=== PATIENT | female | born 1975 | race Caucasian/White ===

== ENCOUNTER → 2017-02-14 09:14 | Day surgery (SDC) | payer OTHER ==
[~2017-02-14 09:14] MED LIST: Buffered Lidocaine 1% SYRIN* 3 ML/SYR SYRINGE INTRADERM ONE; DOXYcycline CAP(*) 100 MG PO ONE; DOXYcycline IV* 100 MG in NS 0.9% 250 ML* 250 ML IVPB ONE; Dexamethasone IV* 4 MG/ML 1 ML (4 MG) ONE; Famotidine IV* 10 MG/ML 2 ML (20 mg) IV ONE; Famotidine IV* 10 MG/ML 2 ML (20 mg) ONE; KETAMINE HCL* 50 MG/ML 10 ML VIAL ONE; Ketorolac INJ* 30 MG/ML 1 ML VIAL ONE; Lidocaine 1% INJ* 10 MG/ML 30 ML SDV ONE; Lidocaine 2% PF* 5 ML VIAL ONE; Metoclopramide TAB* 10 MG ONE; Metoclopramide TAB* 10 MG PO ONE; Midazolam* 1 MG/ML 2 ML VIAL (2 MG) ONE; Midazolam* 1 MG/ML 5 ML VIAL (5 MG) ONE; Misoprostol TAB* 200 MCG ONE; Ondansetron INJ* 2 MG/ML VIAL IV PRN; Ondansetron INJ* 2 MG/ML VIAL ONE; Propofol* 10 MG/ML 20 ML BTL IV PUSH ONE; fentaNYL* 50 MCG/ML 2 ML VIAL (100 MCG VIAL) IV PRN; fentaNYL* 50 MCG/ML 2 ML VIAL (100 MCG VIAL) ONE; oxyCODONE/Acetamin 5/325 MG* TAB PO PRN
[2017-02-14 10:44] LABS: Hematocrit 39 % (35-47); Hemoglobin 13.4 g/dl (12.0-16.0); Mean Corpuscular HGB Conc 34 g/dl (31-36); Mean Corpuscular Hemoglobin 31 pg (27-31); Mean Corpuscular Volume 92 fL (80-97); Mean Platelet Volume 9 um3 (7.4-10.4); Red Blood Count 4.28 10^6/ul (4.0-5.4); Red Cell Distribution Width 13 % (10.5-15); White Blood Count 6.2 10^3/ul (3.5-10.8)
[2017-02-14 12:13] VITALS: BP 110/73
--- NOTE | 2017-02-15 03:34 | OP ---
OPERATIVE REPORT: DATE OF OPERATION: 02/14/17 DATE OF : 75 SURGEON: Marlen Oro MD CLIENT RENEWAL SPECIALIST: None. ANESTHESIOLOGIST: Dr. Charles. ANESTHESIA: Sedation with a paracervical block. PRE-OP DIAGNOSIS: Intrauterine at 8 weeks and 3/7 days missed . POST-OP DIAGNOSIS: Intrauterine at 8 weeks and 3/7 days missed . OPERATIVE PROCEDURE: Dilatation, evacuation, and curettage. ESTIMATED BLOOD LOSS: 100 cc. URINE OUTPUT: 100 cc of clear yellow urine. FLUIDS: 1000 cc of crystalloid. FINDINGS: Revealed intrauterine contents consistent with products of conception. COMPLICATIONS: None apparent. DISPOSITION: Stable to recovery room. DESCRIPTION OF PROCEDURE: The patient was placed into a supine position. Legs were placed in candy -cane stirrups. The perineum and vagina were prepped and draped in a sterile standard fashion. Aft er prepping and draping, the patient was identified using universal protocol for correct position, p atient, and procedure. Self cath was done using a self cath catheter, drainage for 100 cc of clear y ellow urine. A sterile speculum was inserted. The cervix was visualized and anterior lip paracervi josefina block was done, grasped on the anterior lip with a single-tooth tenaculum, total of 10 cc 1% lid ocaine was used for the paracervical blockade and then dilatation was carried out to #9 Hegar dilato r using an 8 mm curved suction curette. Suction evacuation was then performed in a standard fashion and a sharp curettage was performed confirming removal of intrauterine contents with cry of uterus in 4 quadrants. Single-tooth tenaculum was removed. Sterile speculum was removed. Misoprostol 800 mcg was inserted to keep uterine tone. All sponge, needle, instrument, and blade counts were corre ct throughout the case. The patient tolerated the procedure well and went to recovery room in stabl e condition. [id number]/[facility] #: [id number]
== END | disposition home or self-care (01) ==
LOC: OR 09:14
PROVIDERS: ATTEND Obstetrics & Gynecology
DX: O02.1 Missed abortion (principal); E06.3 Autoimmune thyroiditis
CPT/HCPCS: 36415; 85025; 86850; 86900; 86901; 88233; 88291; 88305; A9270-GY; J1100; J1885; J2001; J2250; J2405; J2704; J3010

== ENCOUNTER 2018-04-06 18:54 | Inpatient (IN) | payer OTHER ==
--- NOTE | 2018-04-06 23:09 | HP ---
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 Pertinent Past Surgical History: See Records Pertinent Family History: Non-Contributory - Antepartal Records Antepartal Records: Reviewed, Complicated by: - Maternal age 42, low lying placenta (resolved), short cervix, took vaginal prometrium Review of Systems Constitutional: Uncomfortable - coping well CV Complaint: No Respiratory: Shortness of Breath: No Gastrointestinal: No Nausea/Vomiting Genitourinary: No Dysuria, No Bleeding, No Leaking Fluid Musculoskeletal: No Complaint Neurological: No Headache Movement: Normal Exam Allergies/Adverse Reactions: Allergies MS Pollen Extract [Pollen Extract] Adverse Reaction (Verified 04/06/18 19:59) Runny Nose Vital Signs 04/06/18 20:00 Temperature 98.3 F Pulse Rate 90 Respiratory 18 Rate Blood Pressure 124/79 (mmHg) O2 Sat by Pulse 99 Oximetry - Measurements Height: 5 ft 8 in Weight: 90.265 kg Weight in lbs: 199 Body Mass Index (BMI): 30.2 Pre- Weight: 75.296 kg Weight Gained This : 33 lbs and 0 ozs - Exam Abdomen: No Upper Quadrant Pain Breast: Breast Exam Deferred CVA: No CVA Tenderness Extremities: No Edema Heart: Normal Rhythm/Heart Sounds HEENT: No Significant Findings Lungs: Clear Bilaterally Rectal: Rectal Exam Deferred Reflexes: DTR 2+ Thyroid: No Thyromegaly - Abdominal Exam Abdomen Exam: Non-Tender, Fundal Height Consistent with Dates - Ultrasound/Biophysical Profile Ultrasound Status: Not Done Targeted Exam Findings See L&D Outpatient Visit Provider Note for Findings: Yes Estimated Weight: 8.5# Cervical Exam: 3cm Effacement: 80% Station: -2 Presenting Part: Vertex Membrane Status: Intact Bleeding/Discharge: None EFM Findings - External Monitor Findings Baseline Heart Rate: 130 External Monitor Findings: Accelerations Present, No Pattern of Variable or Late Decelerations, Variability Moderate, Baseline Stable Contractions: Irregular Contraction Frequency: 2-7 Assessment/Plan - Reason for Visit Reason for Visit: Pt here for labor check,scheduled for post dates IOL in AM - Obstetrical Risk Factors Obstetrical Risk Factors: Post-Dates - Plan Plan: Early Labor - Date/Time of Admission Date of Admission: 04/06/18 Time of Admission: 22:45
[2018-04-07] MEDS: Levothyroxine TAB* 175 MCG TAB PO SCH (06:50)
[2018-04-07] MEDS ORDERED: Buffered Lidocaine 0.9% SYRIN* 5 ML/SYR SYRINGE ONE (13:35)
[2018-04-07] MEDS ORDERED: Oxytocin in LR* 20 UNITS/1,000 ML BAG IVPB SCH ×2 (14:00→21:00)
[2018-04-07 14:35] LABS: ABS Basophils 0 10^3/ul (0-0.2); ABS Eosinophils 0.1 10^3/ul (0-0.6); ABS Lymphocytes 1.3 10^3/ul (1.0-4.8); ABS Monocytes 0.8 10^3/ul (0-0.8); ABS Neutrophils 5.9 10^3/ul (1.5-7.7); ABS Nucleated RBC 0 10^3/ul; Eosinophil % 1.2 % (0-6); Hematocrit 40 % (35-47); Hemoglobin 13.5 g/dl (12.0-16.0); Lymphocyte % 15.7 % (25-47); Mean Corpuscular HGB Conc 34 g/dl (31-36); Mean Corpuscular Hemoglobin 32 pg (27-31); Mean Corpuscular Volume 94 fL (80-97); Mean Platelet Volume 8.6 um3 (7.4-10.4); Nucleated Red Blood Cells % 0; Platelet Count 163 10^3/ul (150-450); Red Blood Count 4.22 10^6/ul (4.0-5.4); Red Cell Distribution Width 14 % (10.5-15); White Blood Count 8.1 10^3/ul (3.5-10.8)
[2018-04-07] MEDS ORDERED: Methylergonovine INJ* 0.2 MG/ML 1ML AMP ONE (20:41)
[2018-04-07] MEDS ORDERED: Oxytocin in LR* 20 UNITS/1,000 ML BAG IVPB ONE (20:46)
[2018-04-07] MEDS ORDERED: Methylergonovine INJ* 0.2 MG/ML 1ML AMP IM ONE (20:55)
[2018-04-07] MEDS ORDERED: Acetaminophen TAB* 325 MG PO PRN (20:55)
[2018-04-07] MEDS ORDERED: Witch Hazel PAD* JAR TOPICAL PRN (20:55)
[2018-04-07] MEDS ORDERED: Misoprostol TAB* 200 MCG PR ONE (20:55)
[2018-04-07] MEDS ORDERED: Glycerin ADULT SUPP PR PRN (20:55)
[2018-04-07] MEDS ORDERED: Dibucaine 1% 28.35 GM TUBE PR PRN (20:55)
[2018-04-07] MEDS ORDERED: Misoprostol TAB* 200 MCG ONE (21:06)
[2018-04-07] MEDS: Docusate CAP* 100 MG PO SCH (21:23)
[2018-04-07] MEDS: Ibuprofen TAB* 600 MG PO PRN (21:23)
[2018-04-07] MEDS: Simethicone TAB* 80 MG TAB.CHEW PO SCH (21:23)
[2018-04-08] MEDS: Levothyroxine TAB* 175 MCG TAB PO SCH (07:26)
[2018-04-08] MEDS: Docusate CAP* 100 MG PO SCH ×3 (08:00→22:06)
[2018-04-08] MEDS ORDERED: Ferrous Gluconate TAB* 324 MG TAB PO SCH (09:00)
[2018-04-08 09:39] LABS: ABS Basophils 0 10^3/ul (0-0.2); ABS Eosinophils 0.1 10^3/ul (0-0.6); ABS Lymphocytes 1.4 10^3/ul (1.0-4.8); ABS Neutrophils 7.7 10^3/ul (1.5-7.7); ABS Nucleated RBC 0 10^3/ul; Eosinophil % 0.8 % (0-6); Hematocrit 36 % (35-47); Hemoglobin 12.3 g/dl (12.0-16.0); Lymphocyte % 13.5 % (25-47); Mean Corpuscular HGB Conc 34 g/dl (31-36); Mean Corpuscular Hemoglobin 33 pg (27-31); Mean Corpuscular Volume 95 fL (80-97); Mean Platelet Volume 8.5 um3 (7.4-10.4); Nucleated Red Blood Cells % 0; Platelet Count 152 10^3/ul (150-450); Red Cell Distribution Width 15 % (10.5-15); White Blood Count 10.2 10^3/ul (3.5-10.8)
[2018-04-08] MEDS: Ibuprofen TAB* 600 MG PO PRN ×3 (10:15→22:06)
[2018-04-08] MEDS ORDERED: Lidocaine 1% MPF* 2 ML VIAL ONE (14:50)
[2018-04-09] MEDS: Ibuprofen TAB* 600 MG PO PRN ×2 (04:30→10:53)
[2018-04-09] MEDS: Simethicone TAB* 80 MG TAB.CHEW PO SCH (07:13)
[2018-04-09] MEDS: Levothyroxine TAB* 175 MCG TAB PO SCH (07:32)
[2018-04-09 07:46] VITALS: BP 117/70
[2018-04-09] MEDS: Docusate CAP* 100 MG PO SCH (08:54)
== END 2018-04-09 13:13 | disposition home or self-care (01) | DRG 774 ==
LOC: MCHOBOUT 18:54 → MCHOB 22:49
PROVIDERS: ADMIT Midwife; ATTEND Midwife
PROC: 10907ZC Drainage of Amniotic Fluid, Therapeutic from Products of Conception, Via Natural or Artificial Opening (ICD-10-PCS; principal; 2018-04-09)
PROC: 10E0XZZ Delivery of Products of Conception, External Approach (ICD-10-PCS; 2018-04-09)
PROC: 0KQM0ZZ Repair Perineum Muscle, Open Approach (ICD-10-PCS; 2018-04-09)
PROC: 4A1HX4Z Monitoring of Products of Conception, Cardiac Electrical Activity, External Approach (ICD-10-PCS; 2018-04-09)
DX: O48.0 Post-term pregnancy (principal); O44.43 Low lying placenta NOS or without hemorrhage, third trimester; O26.873 Cervical shortening, third trimester; O99.284 Endocrine, nutritional and metabolic diseases complicating childbirth; E06.3 Autoimmune thyroiditis; Z37.0 Single live birth; Z3A.40 40 weeks gestation of pregnancy; Z91.048 Other nonmedicinal substance allergy status; O72.1 Other immediate postpartum hemorrhage; O70.1 Second degree perineal laceration during delivery
CPT/HCPCS: 36415; 85025; 86850; 86900; 86901; A9270-GY; J2210

== ENCOUNTER 2019-05-11 08:30 | Emergency (ER) | payer OTHER ==
[2019-05-11 08:42] VITALS: BP 117/79
--- NOTE | 2019-05-11 09:05 | UC ---
Throat Pain/Nasal Quan HPI - HPI Summary HPI Summary: Pt presents with 2 days sore throat requesting a strep test Pt's son with strep 2 weeks ago. Pt is travelling tomorrow and wanted to be checked. no fever chills, no n/v/d No ear pain, sinus pain. No analgesia taken + taking po - mild discomfort with swallowing not medications reviewed this visit - History of Current Complaint Chief Complaint: UCGeneralIllness Stated Complaint: SORE THROAT Time Seen by Provider: 05/11/19 09:04 Hx Last Menstrual Period: april 21, 2019 Pain Intensity: 3 - Allergies/Home Medications Allergies/Adverse Reactions: Allergies Allergy/AdvReac Type Severity Reaction Status Date / Time pollen extracts Allergy Eyes Verified 05/11/19 08:42 Itchy/Swollen/Red/Watery Home Medications: Home Medications Levonorgestrel (Iud) [Mirena IUD] 20 mcg IU ONCE 05/11/19 [History Confirmed 12/29] Levothyroxine TAB* [Synthroid TAB*] 150 mcg PO DAILY 05/11/19 [History Confirmed 05/11/19] PMH/Surg Hx/FS Hx/Imm Hx Previously Healthy: Yes - Surgical History Surgical History: Yes Surgery Procedure, Year, and Place: EYE SURGERY AN . TONSILLECTOMY. WISDOM TEETH REMOVAL. d/c , - Family History Known Family History: Positive: Non-Contributory - Social History Lives: With Family Alcohol Use: Weekly Substance Use Type: None Smoking Status (MU): Never Smoked Tobacco Have You Smoked in the Last Year: No - Immunization History Most Recent Influenza Vaccination: not indicated Most Recent Tetanus Shot: 04/06/13 Most Recent Pneumonia Vaccination: NOT INDICATED Review of Systems All Other Systems Reviewed And Are Negative: Yes Constitutional: Positive: Negative Skin: Positive: Negative Eyes: Positive: Negative ENT: Positive: Sore Throat. Negative: Ear Ache, Nasal Discharge, Sinus Congestion, Sinus Pain/Tenderness Respiratory: Positive: Negative Cardiovascular: Positive: Negative Is Patient Immunocompromised?: No Physical Exam - Summary Physical Exam Summary: Vital Signs Reviewed: Yes A+Ox3, no distress Eyes: Conjunctiva Clear, DEBORAH. EOM intact and full ENT: Hearing grossly normal TM x 2 clear, turbinates mildly inflammed, mild PND , mmoist, uvula midline, no exudate, + erythema Neck: Positive: Supple, no lymphadenopathy Respiratory: Positive: No respiratory distress, No accessory muscle use + CTA throughout no w/r Cardiovascular: RRR nl s1, s2 no m/r CBT <2 sec abd soft + BS nt/nd no guarding, no distension Musculoskeletal Exam: RUTH x 4 without difficulty Strength Intact, ROM Intact Neurological: Positive: Alert, + sensation throughout Psychological: Positive: Normal Response To substance abuse therapist Skin: Positive: no rash, no ecchymosis Triage Information Reviewed: Yes Vital Signs: Initial Vital Signs Temp 98.2 F 05/11/19 08:36 Pulse 72 05/11/19 08:36 Resp 18 05/11/19 08:36 BP 117/79 05/11/19 08:36 Pulse Ox 98 05/11/19 08:36 Throat Pain/Nasal Course/Dx - Course Course Of Treatment: Pt presents with sore throat x 2 days pt son with strep 2 weeks ago VSS pt with erythema, no exudate strep neg d/w pt hydrate motrin/apap gargle secretion precaution return precaution pt comfortable and in agreement with plan - Differential Dx/Diagnosis Provider Diagnosis: Pharyngitis Discharge - Sign-Out/Discharge Documenting (check all that apply): Patient Departure All imaging exams completed and their final reports reviewed: No Studies - Discharge Plan Condition: Stable Disposition: HOME Patient Education Materials: Pharyngitis (ED) Referrals: Issac Goff MD [Primary Care Provider] - Adrian RILEY,Noah Chavez [Medical Doctor] - (Dr. Campbell runs a travel clinic - okay to contact for vaccination information and boosters) Additional Instructions: - Okay to alternate ibuprofen (Advil, Motrin) and Tylenol every 3 hours for pain. Take with food. Do NOT take for more than 4-5 days - Okay to gargle and spit warm salt water every 4 hours as needed for pain - Stay well hydrated - frequent sips of cold fluids will be soothing to your throat (popsicles, jello, ice cream, ice water). Avoid excess caffeine until your symptoms have resolved. -Throat infections are spread by oral secretions - do not share eating or drinking utensils until you symptoms are resolved. Clean items that may get your secretions such as cell phones, ipads, computer mouse, television remotes. Once you start to feel better, change your toothbrush and your pillowcase. - Okay to take the counter allergy or decongestant medication - Contact your doctor to arrange a follow-up appointment as needed - Billing Disposition and Condition Condition: STABLE Disposition: Home
== END 2019-05-11 09:15 | disposition home or self-care (01) ==
LOC: UCEAST 08:30
DX: J02.9 Acute pharyngitis, unspecified (principal)
CPT/HCPCS: 87651; 99211; G0463